=== PATIENT | male | born 1960 | race Caucasian/White ===

== ENCOUNTER 2017-09-06 05:47 | Day surgery (SDC) | payer OTHER ==
[2017-09-06] MEDS ORDERED: LIDOCAINE 4% SOLUTION 50 ML BTL (07:54)
[2017-09-06] MEDS ORDERED: FENTAnyl 50 MCG/ML VIAL (08:49)
[2017-09-06] MEDS ORDERED: MIDAZOLAM 1 MG/ML 2 ML INJ ×2 (08:49)
== END 2017-09-06 12:19 | disposition home or self-care (01) ==
LOC: GIL 05:47
DX: R19.5 Other fecal abnormalities (principal); K29.50 Unspecified chronic gastritis without bleeding; K22.70 Barrett's esophagus without dysplasia; D12.3 Benign neoplasm of transverse colon; K29.80 Duodenitis without bleeding; K64.4 Residual hemorrhoidal skin tags
CPT/HCPCS: 43239; 88305; 88312; 88313